=== PATIENT | male | born 1940 | race Caucasian/White ===

== ENCOUNTER 2020-09-07 18:50 | Emergency (ER) | payer MEDICARE, OTHER, SELFPAY ==
[2020-09-07 18:51] VITALS: BP 158/96; PULSE 117; RESP 16; TEMP 36.7; O2SAT 97; BMI 22.3
--- NOTE | 2020-09-07 19:23 | EX.ED.DYSGE1 ---
HPI History of Present Illness Chief Complaint: Back Informant: patient Narrative Narrative: Patient reports that several days ago he was doing yard work moving bags of mulch and suddenly got pain in his right scapula and his muscles tightened up. He was uncomfortable for couple days and then it improved. He slowly began to have some pain on the left side of his neck. Now moving into today he states he has painful swallowing and inability to move his neck. He notes that he is holding his head slightly side bent to the left with rotation to the left. Patient denies any fevers or neurologic deficits. Patient notes that the back is normalized. [facility] Medical History Atrial fibrillation Cataract Former smoker Histoplasmosis Migraine Home Medications metoprolol succinate 50 mg PO DAILY 04/09/13 [History Last Taken Unknown] pravastatin 10 mg PO QHS 04/09/13 [History Last Taken Unknown] warfarin [Coumadin] 5 mg PO DAILY 04/09/13 [History Last Taken Unknown] tizanidine 4 mg PO DAILY 10/11/15 [History Last Taken Unknown] diazepam [Valium] 2 mg PO TID PRN #12 tab 09/07/20 [Rx Last Taken Unknown] Allergy/AdvReac Type Severity Reaction Status Date / Time clindamycin Allergy Hives Verified 10/11/15 20:03 MUSCL RELAXANT Allergy Other Uncoded 09/07/20 18:51 tz...SOMETHING no surgical history (Noncontributory) Social History (Updated 09/07/20 @ 19:[address] Keith Zelaya DO) housing: house Smoking Status: Former smoker ROS ROS ED Constitutional Constitutional ED: Denies chills or weight loss Eyes Eyes: Denies change in vision or diplopia ENT ENT ED: Denies ear pain, rhinorrhea or sore throat Cardiovascular Cardiovascular: Denies chest pain, orthopnea, palpitations or racing heartbeat Respiratory/Chest Respiratory/Chest: Denies cough, dyspnea or orthopnea Gastrointestinal Gastrointestinal: Denies abdominal pain, diarrhea, nausea or vomiting Genitourinary Genitourinary ED: Denies dysuria, hematuria or urinary frequency Musculoskeletal Musculoskeletal: Reports back pain and neck pain; Denies arthralgias or myalgias Integumentary Denies abscess or rash Neurologic Neurologic: Denies headache(s) or weakness Psychiatric Psychiatric: Denies anxiety, depression, suicidal ideation or suicidal thoughts Endocrine Endocrinology: Denies polydipsia, polyphagia or polyuria Allergic/Immunologic Allergic/Immunologic ED: Denies mouth swelling, tongue swelling or urticaria EXAM Physical Exam Const Vital Signs: 09/07/20 18:51 Temperature 98.0 F Temperature Source Temporal Pulse Rate 117 H Respiratory Rate 16 Blood Pressure 158/96 H Blood Pressure Mean 116 Pulse Ox 97 Oxygen Delivery Method Room Air Positive well nourished and well developed General Appearance ED: well developed HEENT Reports normocephalic, head/scalp atraumatic and moist mucous membranes Eyes PERRL and EOMs intact bilaterally Neck no lymphadenopathy, supple and no JVD Neck Narrative: Patient holds his neck and is side bent left rotated right position. Tenderness along the sternocleidomastoid muscles. Resp normal respiratory effort and clear to auscultation bilaterally Cardio regular rate, regular rhythm and no murmurs GI normal to inspection, nondistended, normoactive bowel sounds and non-tender Palpation: soft Back/Spine no CVA tenderness and normal ROM Extremity normal to inspection General Extremety ED: Negative for edema General Extremity: Negative for edema Neuro oriented x3 and CN's II-XII intact bilaterally Sensorium / Orientation: alert Motor Exam: strength 5/5 throughout Psych mental status grossly normal Mood & Affect: Negative for depressed or tearful Skin no rashes or lesions noted and no wounds MDM MDM MDM Narrative Medical decision making narrative: See if we get the patient a soft collar. I will write for some low-dose Valium as a muscle relaxant. Recommend heat gentle stretching and patient was advised that this may take several days to resolve. Discharge Plan Triage Chief Complaint: Back ED Provider: Keith Zelaya Dx/Rx/DC Orders Clinical Impression: Torticollis, acute Instructions: ED Muscle Spasm Prescriptions: New diazepam [Valium] 2 mg tablet 2 mg PO TID PRN (Reason: muscle spasm) Qty: 12 RF: 0 No Action metoprolol succinate 50 MG tablet 50 mg PO DAILY RF: 0 pravastatin 10 MG tablet 10 mg PO QHS RF: 0 warfarin [Jantoven] 5 MG tablet 5 mg PO DAILY RF: 0 tizanidine 4 MG tablet 4 mg PO DAILY RF: 0 Primary Care Provider: Vimal Goncalves Referrals: Vimal Goncalves MD [Primary Care Provider] - 3-5 Days if not improving Activity Restrictions/Additional Instructions: Do not take the Valium with any other muscle relaxants Disposition Disposition: Home, self care
== END 2020-09-07 19:45 | disposition home or self-care (01) ==
LOC: ED 19:39
PROVIDERS: Emergency Provider Emergency Medicine; PCP Internal Medicine
DX: M43.6 Torticollis (principal); I48.91 Unspecified atrial fibrillation; Z79.01 Long term (current) use of anticoagulants; Z87.891 Personal history of nicotine dependence
CPT/HCPCS: 99282

== ENCOUNTER 2023-02-19 09:41 | Emergency (ER) | payer MEDICARE, OTHER, SELFPAY ==
[2023-02-19 09:42] VITALS: BP 152/82; PULSE 64; RESP 14; TEMP 36.4; O2SAT 100; BMI 23.0
[2023-02-19 09:51] VITALS: O2SAT 95
--- NOTE | 2023-02-19 10:11 | EKG12_ITS ---
Test Reason : Blood Pressure : / mmHG Vent. Rate : 060 BPM Atrial Rate : 060 BPM P-R Int : 146 ms QRS Dur : 086 ms QT Int : 420 ms P-R-T Axes : 066 001 035 degrees QTc Int : 420 ms Sinus rhythm with Fusion complexes Septal infarct , age undetermined Abnormal ECG Confirmed by JEANA LAWTON, DEYA ([id number]), business editor CIARAN MCKNIGHT ([id number]) on 02/23/2023 8:01:23 AM Referred By: Confirmed By:DEYA HILLS MD
--- NOTE | 2023-02-19 10:11 | CT_ITS ---
HISTORY: neck trauma. TECHNIQUE: Helically acquired images were obtained of the cervical spine without contrast. 2D reformatted images were reviewed. A radiation dose optimization technique was used for this scan. 454 images. COMPARISON: None. FINDINGS: VERTEBRAE: Vertebral body heights maintained. No acute fracture identified. ALIGNMENT: 2 mm retrolisthesis of C6/7. Straightening of the cervical lordosis. INTERVERTEBRAL DISCS: Advanced degenerative endplate changes at multiple levels with posterior disc bulge osteophyte complexes as well as uncovertebral and facet arthropathy. Mild central canal stenosis at multiple levels. SOFT TISSUES: No prevertebral soft tissue swelling. CT/Spine Cervical without Contras IMPRESSION: No evidence for acute fracture or dislocation in the cervical spine. Multilevel degenerative change. Mild retrolisthesis of C6/7. Electronically Signed: Kerry Kong MD at 10:53 EDT ,
--- NOTE | 2023-02-19 10:11 | CT_ITS ---
HISTORY: head trauma. TECHNIQUE: Multiple axial images were obtained of the head without intravenous contrast. A radiation dose optimization technique was used for this scan. 248 images. COMPARISON: None. FINDINGS: BRAIN PARENCHYMA: Multiple foci and zones of low attenuation in the bilateral cerebral white matter compatible with chronic small vessel ischemic gliosis. No acute intra-axial hemorrhage identified. CSF SPACES: Generalized volume loss. No midline shift or other significant mass effect. No acute extra-axial hemorrhage seen. OTHER: Intact calvarium. No significant air fluid levels in the paranasal sinuses or mastoid air cells. Right periorbital and facial hematoma. Bilateral lens resections. CT/Brain/Head without Contrast IMPRESSION: No acute intracranial process identified. Chronic involutional and white matter changes. Right periorbital and facial hematomas. Electronically Signed: Kerry Kong MD at 10:51 EDT ,
--- NOTE | 2023-02-19 10:11 | CT_ITS ---
HISTORY: facial trauma TECHNIQUE: Helically acquired images of the facial bones were obtained without contrast. A radiation dose optimization technique was used for this scan. 462 images. COMPARISON: None. FINDINGS: OSSEOUS STRUCTURES: No acute fracture or dislocation identified. SOFT TISSUES: Mild right periorbital contusion. Moderate right premaxillary contusion with a 9 x 12 mm facial hematoma. PARANASAL SINUSES: Mild left maxillary sinus mucosal thickening. VISUALIZED MASTOID AIR CELLS: Clear. ORBITAL CONTENTS: Both globes, extraocular muscles and retrobulbar fat appear unremarkable. Bilateral lens resections. CT/Sinus/Facial Bone IMPRESSION: Right periorbital and premaxillary facial contusions with a small facial hematoma. No acute fracture identified. Electronically Signed: Kerry Kong MD at 10:57 EDT ,
[2023-02-19 10:20] VITALS: O2SAT 96
[2023-02-19 10:22] LABS: Absolute Lymphocyte Count 1.12 X10^3/uL (0.83-4.51); Absolute Neutrophil Count 6.1 X10^3/uL (2.0-7.7); Basophil# 0.03 X10^3/uL; Basophil% 0.4 % (0-1); Eosinophil# 0.12 X10^3/uL; Eosinophils% 1.5 % (0-5); Hematocrit 44.1 % (40-54); Hemoglobin 14.2 g/dL (13.0-16.5); Lymphocyte # 1.12 X10^3/ul (0.83-4.51); Lymphocyte % 13.9 % (19-41); Mean Corp Hgb Conc 32.2 g/dL (32-36); Mean Corpuscular Hgb 31.3 pg (27.0-32.0); Mean Corpuscular Volume 97.1 fL (80-94); Mean Platelet Vol. 9.3 fl (6.2-12.0); Monocyte# 0.64 X10^3/uL; NRBC Flagged by Analyzer 0 % (0-5); Neutrophil # 6.09 X10^3/uL (2.7-7.7); Neutrophil % 75.8 % (47-70); Platelet Count 169 K/mm3 (150-450); RBC Distribution Width CV 12.8 % (11.6-14.6); RBC Distribution Width SD 45.7 fl (35.1-43.9); Red Blood Count 4.54 M/mm3 (4.6-6.2)
[2023-02-19 10:27] LABS: International Normalized Ratio 1.4; Prothrombin Time (Protime)PT. 17.3 SECONDS (11.7-14.9)
--- NOTE | 2023-02-19 10:30 | RAD_ITS ---
HISTORY: chest pain. TECHNIQUE: XR Chest 1 View. COMPARISON: None. FINDINGS: CARDIOMEDIASTINAL BORDERS: Cardiac silhouette within normal limits in size. Mediastinal contour unremarkable with calcification of the aortic knob. LUNGS: Small calcified right upper lobe granulomas. Mild right infrahilar opacity. PLEURA: No pleural effusion or pneumothorax seen. OSSEOUS STRUCTURES: Degenerative change. RAD/Chest 1 View (Portable) IMPRESSION: Mild right infrahilar opacity, possible pneumonia. Recommend follow-up to resolution or CT. Electronically Signed: Kerry Kong MD at 10:58 EDT ,
[2023-02-19 10:39] LABS: Anion Gap 6 (5-15); BUN 21 mg/dL (7-18); BUN/Creat Ratio 17.9 RATIO (10-20); Chloride 110 mmol/L (98-107); Creatinine, Serum 1.17 mg/dL (0.70-1.30); EST Glomerular Filtration Rate 63 mL/min (>60); Est Glom Filt Rate - Afr Amer 77 mL/min (>60); Estimated Creatinine Clearance 51.53 ml/min; Glucose 109 mg/dL (74-106); Potassium 4.1 mmol/L (3.5-5.1); Sodium Level 143 mmol/L (136-145); Troponin-I HS 9 pg/mL (3.0-78.0)
[2023-02-19 10:42] LABS: BNP,B-Type NATRIURETIC PEPTIDE 68.2 pg/mL (0-100)
--- NOTE | 2023-02-19 11:07 | CT_ITS ---
HISTORY: Abnormal chest x-ray. TECHNIQUE: Helically acquired images were obtained of the chest without contrast. A radiation dose optimization technique was used for this scan. 916 images. COMPARISON: XR same day. FINDINGS: LARGE AIRWAYS: Patent. LUNGS: Moderate emphysema. Mild biapical scarring with pleural parenchymal thickening, slight nodularity, and mild calcification on the right. 3 mm groundglass nodule in the left upper lobe laterally on image 75/139. 4 mm lingular nodule on image 90. 11 mm irregular nodule or scar in the right apex with associated bronchiectasis or cystic change. 5 mm right lower lobe nodule adjacent to the diaphragm on image 108. Right lower lobe bulla likely corresponding to the radiographic finding. PLEURA: No pneumothorax or significant pleural effusion. HEART/PERICARDIUM: Heart within normal limits in size with coronary artery calcification. No pericardial effusion. VESSELS: Thoracic aorta nondilated. Atherosclerosis present. MEDIASTINUM/GERMAN: Small calcified mediastinal and right hilar lymph nodes. UPPER ABDOMEN: Unremarkable. BONES: Degenerative change. CT/Chest without Contrast IMPRESSION: Moderate emphysema with biapical pleural parenchymal scarring. Irregular 1.1 cm right apical opacity, which may represent irregular pulmonary nodule versus scar/postinflammatory change. Recommend close short-term interval follow-up in 1 month, PET-CT, and/or tissue sampling. Bilateral pulmonary nodules measuring up to 5 mm in the right lower lobe. Electronically Signed: Kerry Kong MD at 11:47 EDT ,
--- NOTE | 2023-02-19 11:24 | EX.ED.GENINJ ---
HPI History of Present Illness Chief Complaint: Head Injury Narrative Narrative: 82-year-old male presenting with facial bruising over the right eye and right cheek. He states the last thing he remembers is watching the news and hearing something about his Giancarlo has a vague recollection of opening the garage door to go outside and onset lasting he remembers. He believes he lost about an hour of time. He woke up looking in the mirror and bruising on his right cheek and face. He does not have a headache. He does not have any visual complaints. He has no nausea or vomiting. He has been ambulating with a stable gait. His is at the bedside and she had not seen him at all during that timeframe. Patient otherwise healthy prior to the event. Denies any nausea/vomiting, chest pain, shortness of breath, back or bloody stools, fever, chills. [facility] Medical History Atrial fibrillation Cataract Former smoker Histoplasmosis Migraine Home Medications metoprolol succinate 50 mg tablet,extended release 24 hr 50 mg PO DAILY 04/09/13 [History Last Taken Unknown] pravastatin 10 mg tablet 10 mg PO QHS 04/09/13 [History Last Taken Unknown] warfarin 5 mg tablet (Jantoven) 5 mg PO DAILY 04/09/13 [History Last Taken Unknown] tizanidine 4 mg tablet 4 mg PO DAILY 10/11/15 [History Last Taken Unknown] diazepam 2 mg tablet (Valium) 2 mg PO TID PRN muscle spasm #12 tabs 09/07/20 [Rx Last Taken Unknown] Allergy/AdvReac Type Severity Reaction Status Date / Time clindamycin Allergy Hives Verified 02/19/23 09:44 tizanidine Allergy NEEDS Verified 02/19/23 09:44 FOLLOW-UP Social History housing: house Smoking Status: Former smoker ROS ROS ED Constitutional Constitutional ED: Denies chills, fever(s) or sweats Eyes Eyes: Denies blurry vision or change in vision ENT ENT ED: Denies ear pain or sore throat Cardiovascular Cardiovascular: Denies chest pain, palpitations or racing heartbeat Respiratory/Chest Respiratory/Chest: Denies cough, dyspnea or sputum Gastrointestinal Gastrointestinal: Denies abdominal pain, constipation, diarrhea, nausea or vomiting Genitourinary Genitourinary ED: Denies dysuria, hematuria or urinary frequency Musculoskeletal Musculoskeletal: Denies arthralgias, myalgias or neck pain Integumentary Reports other Details: Bruising over right cheek and right forehead ; Denies abscess, Abrasions or rash Neurologic Neurologic: Denies headache(s), paresthesias or weakness Psychiatric Psychiatric: Denies anxiety, depression, suicidal ideation or suicidal thoughts Endocrine Endocrinology: Denies polydipsia or polyuria EXAM Physical Exam Const Vital Signs: 02/19/23 09:42 02/19/23 09:51 02/19/23 10:20 Temperature 97.5 F L Temperature Source Temporal Pulse Rate 64 Respiratory Rate 14 Respiratory Effort Normal Non-Labored Respiratory Depth Normal Blood Pressure 152/82 H Blood Pressure Mean 105 Pulse Ox 100 95 96 Oxygen Delivery Method Room Air Room Air Room Air 02/19/23 12:00 Temperature Temperature Source Pulse Rate 62 Respiratory Rate 17 Respiratory Effort Respiratory Depth Blood Pressure 129/77 H Blood Pressure Mean 94 Pulse Ox 98 Oxygen Delivery Method Room Air Positive well nourished General Appearance ED: NAD HEENT Reports normocephalic, hearing grossly normal bilaterally, external ears normal, EAC's normal, TM's clear, external nose normal, oropharynx normal and dentition normal HEENT Narrative: Bruising and facial swelling around the right supraorbital ridge and infraorbital region. No obvious deformities. No extraocular muscle entrapment. Vision intact. Negative for Cruz's sign, laceration or raccoon eyes Nose: external nose normal and nares normal External Ear: mastoids normal Tympanic Membrane ED: Yes TM's clear Mouth ED: Yes oral and palatal mucosa normal, Yes lips normal and Yes tongue normal Mouth: oral and palatal mucosa normal, lips normal and tongue normal Throat: posterior oropharynx normal Eyes PERRL and EOMs intact bilaterally Chest Wall inspection of chest normal Resp normal respiratory effort and clear to auscultation bilaterally Auscultation: Negative for rales, rhonchi or wheezes Cardio regular rhythm Rate: regular rate GI normal to inspection, nondistended, normoactive bowel sounds and non-tender Back/Spine normal to inspection Extremity normal to inspection General Extremety ED: Negative for deformity or edema General Extremity: Negative for deformity or edema Neuro oriented x3, CN's II-XII intact bilaterally, moves all extremities, no focal motor deficits, no sensory deficits noted and gait normal Sensorium / Orientation: alert Motor Exam: strength 5/5 throughout Psych mental status grossly normal and thought process normal Skin Skin Narrative: Bruising as noted above. MDM MDM MDM Narrative Medical decision making narrative: 82-year-old male on Coumadin who states that he lost about an hour of time. Lasting he recalls is a vague recollection of opening the garage door. He states that he does not believe the garage door hit him. He woke up looking at himself in the mirror and cannot recall any events. Differential includes cranial hemorrhage, skull fracture, facial bone fracture, C-spine fracture, syncope, ACS, CHF, pneumonia, electrode abnormalities, dehydration, Coumadin coagulopathy, arrhythmia. CBC was obtained to assess blood cell count, hemoglobin, platelets. BMP to assess renal function and electrolytes. High-sensitivity troponin and EKG to assess for ischemia/dysrhythmia. BNP to assess for CHF. PT/INR to check for coagulopathy. CBC returned with white blood cell count 8.0. Hemoglobin stable 14.2. Platelets 169. INR 1.4. Sensitivity troponin is 9. BNP 68.2. Chest x-ray on my interpretation shows nothing acute however the radiologist answers a slight opacity in the right lower lobe. Recommend CT scan. This was obtained. CT brain and cervical spine are negative for acute fractures or intracranial injury. He does have some swelling noted where his facial bruising is. On reevaluation the patient is resting comfortably. His vital signs remained stable. Patient is on Eliquis and not Coumadin. He is not having any new or worsening symptoms. I offered the patient admission and observation as I was not sure what exactly happened to him but he feels well and wants to go home. I spoke with Dr. Samuel who is on-call for Dr. Goncalves who states that they will make sure they follow-up with him. CT scan of the chest came back with lung nodules and this was discussed with her as well as he will need follow-up. Impression: 1. Altered mental status resolved 2. Facial contusion 3. Lung nodules Lab Data Labs: Laboratory Results - last 24 hr 02/19/23 10:00 WBC 8.0 RBC 4.54 L Hgb 14.2 Hct 44.1 MCV 97.1 H MCH 31.3 MCHC 32.2 RDW Std Deviation 45.7 H RDW Coeff of Rocky 12.8 Plt Count 169 MPV 9.3 Immature Gran % (Auto) 0.400 Neut % (Auto) 75.8 H Lymph % (Auto) 13.9 L Mobile % (Auto) 8.0 Eos % (Auto) 1.5 Baso % (Auto) 0.4 Absolute Neuts (auto) 6.1 Absolute Lymphs (auto) 1.12 Nucleated RBC % 0 PT 17.3 H INR 1.4 Sodium 143 Potassium 4.1 Chloride 110 H Carbon Dioxide 27.0 Anion Gap 6 BUN 21 H Creatinine 1.17 Estim Creat Clear Calc 51.53 Est GFR (MDRD) Af Amer 77 Est GFR (MDRD) Non-Af 63 BUN/Creatinine Ratio 17.9 Glucose 109 H Calcium 9.0 Troponin I High Sens 9 B-Natriuretic Peptide 68.2 Radiography Diagnostic Testing: Clinical Impression(s) from Imaging Studies Brain CT 02/19/23 10:11 IMPRESSION: No acute intracranial process identified. Chronic involutional and white matter changes. Right periorbital and facial hematomas. Electronically Signed: Kerry Kong MD at 10:51 EDT , Cervical Spine CT 02/19/23 10:11 IMPRESSION: No evidence for acute fracture or dislocation in the cervical spine. Multilevel degenerative change. Mild retrolisthesis of C6/7. Electronically Signed: Kerry Kong MD at 10:53 EDT , Facial/Sinus 02/19/23 10:11 IMPRESSION: Right periorbital and premaxillary facial contusions with a small facial hematoma. No acute fracture identified. Electronically Signed: Kerry Kong MD at 10:57 EDT , Chest X-Ray 02/19/23 10:30 IMPRESSION: Mild right infrahilar opacity, possible pneumonia. Recommend follow-up to resolution or CT. Electronically Signed: Kerry Kong MD at 10:58 EDT , Chest CT 02/19/23 11:07 IMPRESSION: Moderate emphysema with biapical pleural parenchymal scarring. Irregular 1.1 cm right apical opacity, which may represent irregular pulmonary nodule versus scar/postinflammatory change. Recommend close short-term interval follow-up in 1 month, PET-CT, and/or tissue sampling. Bilateral pulmonary nodules measuring up to 5 mm in the right lower lobe. Electronically Signed: Kerry Kong MD at 11:47 EDT , Discharge Plan Triage Chief Complaint: Head Injury ED Provider: Jaden Paul Dx/Rx/DC Orders Instructions: ED ALOC, ED Facial Contusion, ED Pulmonary Nodule, Solitary Prescriptions: No Action metoprolol succinate 50 MG tablet 50 mg PO DAILY pravastatin 10 MG tablet 10 mg PO QHS warfarin [Jantoven] 5 MG tablet 5 mg PO DAILY tizanidine 4 MG tablet 4 mg PO DAILY diazepam [Valium] 2 mg tablet 2 mg PO TID PRN (Reason: muscle spasm) Qty: 12 0RF Primary Care Provider: Vimal Goncalves Referrals: Vimal Goncalves MD [Primary Care Provider] - Disposition Disposition: Home, Self Care
[2023-02-19 12:00] VITALS: BP 129/77; PULSE 62; RESP 17; O2SAT 98
[2023-02-19 13:12] VITALS: BP 140/81; PULSE 57; RESP 14; O2SAT 95
== END 2023-02-19 13:33 | disposition home or self-care (01) ==
PROVIDERS: Emergency Provider Student in an Organized Health Care Education/Training Program; PCP Internal Medicine; Visit Provider Student in an Organized Health Care Education/Training Program
DX: S00.83XA Contusion of other part of head, initial encounter (principal); R91.8 Other nonspecific abnormal finding of lung field; Z87.891 Personal history of nicotine dependence; X58.XXXA Exposure to other specified factors, initial encounter
CPT/HCPCS: 70450; 70486; 71045; 71250; 72125; 80048; 83880; 84484; 85025; 85610; 93005; 99283; A4216